=== PATIENT | female | born 1970 | race Caucasian/White ===

== ENCOUNTER 2017-06-22 12:47 | Inpatient (IN) | payer BC, OTHER ==
[~2017-06-22] VITALS: Ht 175.3 cm; Wt 60.3 kg
[2017-06-22] MEDS ORDERED: MAGNESIUM HYDROXIDE 30 ML LIQUID UDC PO PRN (14:00)
[2017-06-22] MEDS ORDERED: DICYCLOMINE HCL 20 MG TABLET PO PRN (14:00)
[2017-06-22] MEDS ORDERED: LOPERAMIDE HCL 2 MG CAPSULE PO PRN ×2 (14:00)
[2017-06-22] MEDS ORDERED: LORAZEPAM 2 MG/1 ML VIAL IM PRN (14:00)
[2017-06-22] MEDS ORDERED: ACETAMINOPHEN 325 MG TABLET PO PRN (14:00)
[2017-06-22] MEDS ORDERED: MIRALAX 17 GM POWD.PACK PO PRN (14:00)
[2017-06-22] MEDS ORDERED: THIAMINE HCL 200 MG/2 ML VIAL IM ONE (14:00)
[2017-06-22] MEDS ORDERED: ONDANSETRON 4 MG/2 ML VIAL IM PRN (14:00)
[2017-06-22] MEDS ORDERED: LORAZEPAM 1 MG TABLET PO PRN ×2 (14:00)
[2017-06-22] MEDS ORDERED: MAG HYDROX/AL HYDROX/SIMETH 30 ML LIQUID UDC PO PRN (14:00)
[2017-06-22] MEDS ORDERED: ONDANSETRON ODT 4 MG TAB.RAPDIS SL PRN (14:00)
[2017-06-22] MEDS ORDERED: IBUPROFEN 400 MG TABLET PO PRN (14:00)
--- NOTE | 2017-06-22 14:00 | NUR ---
Pre-Admission Pre-admission assessment taken place in the intake department of [facility]. Pt is A&O x4 and ambulatory with a steady gait. She does not appear intoxicated and answers questions appropriately. Her body movement and facial expression are tense. She is observed to be flushed. Vitals: B/P 178/100, HR 99, RR 18, O2 sat 97%, T 98.1, pain 0/10. She reports that she is here to be treated for ETOH use with last drink being this morning. Admission to continue [facility] the [facility].
[2017-06-22 14:30] VITALS: BP 178/100
[2017-06-22 14:33] LABS: *URINE HCG, QUAL NEGATIVE
[2017-06-22 14:45] LABS: *AMPHETAMINE, URINE NEGATIVE (NEGATIVE); *BARBITURATE, URINE NEGATIVE (NEGATIVE); *CANNABINOID, URINE NEGATIVE (NEGATIVE); *COCCAINE, URINE NEGATIVE (NEGATIVE); *OPIATE, URINE NEGATIVE (NEGATIVE); *PHENCYCLIDINE SCREEN,URINE NEGATIVE (NEGATIVE)
[2017-06-22] MEDS ORDERED: VENL75TA4 PO (15:08)
[2017-06-22] MEDS ORDERED: LEVO100T10 PO (15:08)
[2017-06-22] MEDS ORDERED: VALS1TAB2 PO (15:08)
[2017-06-22] MEDS: CLONIDINE HCL 0.1 MG TABLET PO PRN (15:13)
[2017-06-22] MEDS: HCTZ PO SCH (15:13)
[2017-06-22] MEDS: VALSARTAN PO SCH (15:13)
--- NOTE | 2017-06-22 15:15 | NUR ---
PRN Clonidine and one time Valsartan Pt's B/P on admission is 178/[address] Little made aware. Orders received to administer home medication Valsartan and PRN Clonidine.
[2017-06-22] MEDS ORDERED: MULT1TAB73 PO (15:58)
[2017-06-22] MEDS ORDERED: CHOL200010 PO (15:58)
[2017-06-22] MEDS ORDERED: CHOL200078 PO (15:58)
[2017-06-22] MEDS ORDERED: [UNRECOGNIZED DRUG - OTHER] PO (15:58)
[2017-06-22] MEDS ORDERED: THYROMIN PO (15:58)
[2017-06-22] MEDS ORDERED: CYAN10009 PO (15:58)
[2017-06-22] MEDS ORDERED: [UNRECOGNIZED DRUG - OTHER] PO (15:58)
[2017-06-22] MEDS ORDERED: CALC-860 PO (15:58)
[2017-06-22] MEDS ORDERED: ESOM20CA PO (15:58)
--- NOTE | 2017-06-22 16:00 | NUR ---
ADMISSION Pt is a 47 yo female who arrived on the [facility] at 1422 on 06/22/17 for medically supervised ETOH detox. Body check performed by BUS ESCORT and skin check performed by nurse. Pt is A&O x4 and ambulatory with a steady gait. She does not appear intoxicated. She has a flat affect and depressed mood. She is odorous and appears tense with facial flushing. The patient states that withdrawal from ETOH typically causes tremors, depression, anxiety, and an overall feeling of discomfort. Pt denies a h/o withdrawal related seizures. History of use: ETOH/Malt beverage [place] 144 oz per day for the past 3 years. Last drank 36 oz on 06/22/17 at 0600. She began drinking alcohol 4 years ago. Pt denies using any other substances. She smokes 20 cigarettes per day. She states that she is seeking treatment today because "Its time to change". Her internal motivation for treatment is her family. This is her first time in any detox or treatment. She explains that the way she handles stress is by drinking. She has suffered the of one child and has three living children. She lives at home with her and children. Vitals: B/P 178/100, HR 99, RR 18, O2 sat 97%, T 98.1, pain 0/10. She is 5'9" and weighs 133lb. Heart rhythm is regular. Respirations are even and unlabored. Mild wheezing heard throughout all lung logan. Pt denies SOB. Bowel sounds present in all quadrants. Skin is warm and intact. Pt had a gastric bypass in 2007 and states I have a picky pallet. Last BM was this morning. She currently has her menstrual period and reports that it is irregular. Her medical history includes HTN, Hashimotos disease, h/o cervical cancer, gastric bypass, anxiety, and depression. Her primary care physician is Dr. Karen Sigala in [facility]. Educated patient about the plan of care, medications, and use of the call light. Encouraged patient be open and honest and verbalized support in her recovery. Addendum: 06/22/17 at 1912 by ALLYSON HANSEN RN Pt reports occasionally having "a couple days of sobriety" with the last time being two weeks ago.
[2017-06-22] MEDS: THIAMINE HCL 100 MG TABLET PO SCH (16:19)
[2017-06-22] MEDS: LORAZEPAM 1 MG TABLET PO SCH ×2 (16:19→20:20)
[2017-06-22 16:30] VITALS: BP 158/79
--- NOTE | 2017-06-22 16:30 | NUR ---
PRN Clonidine and one time Valsartan reassessment PRN Clonidine and Valsartan effective at reducing pt's B/P to 158/79. She is lying in bed resting.
[2017-06-22 17:31] LABS: BASOPHILS # (AUTO) 0.1 K/uL (0.0-8.0); BASOPHILS % (AUTO) 0.9 % (0.0-2.0); EOSINOPHILS % (AUTO) 0.3 % (0.0-7.0); HEMATOCRIT 42.5 % (36.7-47.1); HEMOGLOBIN 14.5 g/dL (12.5-16.3); LYMPHOCYTES # (AUTO) 1.8 K/uL (20.0-40.0); LYMPHOCYTES % (AUTO) 22.1 % (20.5-51.5); MEAN CORPUSCULAR HEMOGLOBIN 34.3 uug (23.8-33.4); MEAN CORPUSCULAR HGB CONC 34 g/dL (32.5-36.3); MEAN CORPUSCULAR VOLUME 100.2 fL (73.0-96.2); MONOCYTES # (AUTO) 0.6 K/uL (2.0-10.0); MONOCYTES % (AUTO) 7.4 % (0.0-11.0); NEUTROPHILS # (AUTO) 5.8 K/uL (1.8-8.9); NEUTROPHILS % (AUTO) 69.3 % (38.5-71.5); PLATELET COUNT (AUTO) 282 K/uL (152-348); RED BLOOD CELL COUNT(AUTO) 4.24 MIL/uL (4.06-5.63); WHITE BLOOD COUNT (AUTO) 8.3 K/uL (3.6-10.2)
[2017-06-22 17:34] LABS: ETHANOL 70 MG/DL (0-0)
[2017-06-22 17:43] LABS: ALANINE AMINOTRANSFERASE 35 U/L (16-63); ALKALINE PHOSPHATASE 125 U/L (50-136); AMYLASE 69 U/L (25-115); ASPARTATE AMINOTRANSFERASE 52 U/L (15-37); BILIRUBIN,TOTAL 0.4 mg/dL (0.2-1.0); CARBON DIOXIDE 27 mmol/L (21-32); CHLORIDE 97 mmol/L (98-107); CREATININE 0.6 mg/dL (0.6-1.3); GLUCOSE 87 mg/dL (74-106); MAGNESIUM 1.8 mg/dL (1.8-2.4); POTASSIUM 3.6 mmol/L (3.5-5.1); TOTAL PROTEIN, SERUM 7.1 g/dL (6.4-8.2); UREA NITROGEN, BLOOD 7 mg/dL (7-18)
[2017-06-22 17:53] LABS: THYROID STIMULATING HORMONE 1.635 mIU/mL (0.358-3.740)
--- NOTE | 2017-06-22 19:10 | NUR ---
END OF SHIFT Report provided to table games shift manager nurse. Pt is lying in bed resting. She is a 47 yo female admitted to [facility] today for ETOH dependence. Modified Ativan taper started today. She had elevated B/P. PRN Clonidine and home Valsartan administered and effective. Pt did not sleep well last night prior to coming to [facility]. She is currently lying in bed resting. Last CIWA was 9 and she drank 605mL. Safety measures in place. Bed is down with call light in reach.
--- NOTE | 2017-06-22 19:30 | NUR ---
START OF SHIFT Pt is a 47 y/o female admitted on today for ETOH withdrawal. Pt started a 5 day Ativan taper today, tolerating well. Last CIWA 9 and PRN Clonidine administered. Upon assessment pt presents with anxiety, agitation, irritability, restlessness, flat and depressed affect, fatigue, lethargy, flushed skin, tremors, intermittent sweats, slumped posture, increased BP and HR, dysphoria and anhedonia. Medications due. Safety measures in place. Call light within reach. Will continue to monitor.
[2017-06-22 20:00] VITALS: BP 209/99
--- NOTE | 2017-06-22 20:20 | NUR ---
MD NOTIFICATION BP 209/99, HR 100. Pt has asymptomatic elevated BP. MD notified. Orders to give Amlodipine and Labetalol x 1. Safety measures in place. Call light within reach. Will continue to monitor.
[2017-06-22] MEDS ORDERED: LABETALOL HCL 100 MG TABLET PO ONE (20:30)
[2017-06-22] MEDS ORDERED: AMLODIPINE 10 MG TABLET PO ONE (20:30)
[2017-06-23] VITALS (10 sets, daily range): BP systolic 111–189; BP diastolic 71–106
[2017-06-23] MEDS: CLONIDINE HCL 0.1 MG TABLET PO PRN ×3 (00:43→16:45)
--- NOTE | 2017-06-23 00:45 | NUR ---
PRN CLONIDINE AND BENADRYL ADMINISTRATION BP 143/82 HR 88, orders to give PRN Clonidine. Pt requests sleep aid for insomnia. Safety measures in place. Call light within reach. Will continue to monitor.
[2017-06-23] MEDS: diphenhydrAMINE 50 MG CAPSULE PO PRN ×2 (00:48→21:32)
[2017-06-23] MEDS: hydrALAZINE HCL 50 MG TABLET PO PRN ×3 (03:58→16:45)
--- NOTE | 2017-06-23 04:00 | NUR ---
PRN HYDRALAZINE ADMINISTRATION BP 173/87 HR 87, orders to give Hydralazine. Safety measures in place. Call light within reach. Will continue to monitor.
--- NOTE | 2017-06-23 04:00 | NUR ---
EBENEZER DEFERRED Pt laying in bed with eyes closed, CIWA deferred, to be assessed when pt is awake per orders. Respirations even and unlabored. Safety measures in place. Call light within reach. Will continue to monitor. Addendum: 06/23/17 at 0656 by ELMER BRAUN RN CORRECTION: EBENEZER NOT DEFERRED, WOKE UP SHORTLY AFTER 0400
--- NOTE | 2017-06-23 05:00 | NUR ---
PRN HYDRALAZINE REASSESSMENT BP 162/81 HR 74. Pt is asymptomatic. Safety measures in place. Call light within reach. Will continue to monitor.
--- NOTE | 2017-06-23 06:43 | NUR ---
PRN CLONIDINE ADMINISTRATION BP 172/91, BP 72, orders to give Clonidine. Pt is asymptomatic. Safety measures in place. Call light within reach. Will continue to monitor. Addendum: 06/23/17 at 0659 by ELMER BRAUN RN Reassessment endorsed to day shift nurse.
--- NOTE | 2017-06-23 06:59 | NUR ---
END OF SHIFT Pt is a 47 y/o female admitted on today for ETOH withdrawal. Pt started a 5 day Ativan taper today, tolerating well. Pt presented with anxiety, agitation, irritability, restlessness, flat and depressed affect, fatigue, lethargy, flushed skin, tremors, intermittent sweats, slumped posture, persistent increased BP and HR, dysphoria and anhedonia. Pts BP was 209/99, notified, gave orders for Amlodipine and Labetalol x 1. Scheduled medications and PRN Clonidine x2, Hydralazine and Benadryl administered, effective in S/S of withdrawal as verbalized by pt. Last CIWA 12. Pt slept 9 hours. Intake 2000 ml, void x 3, stool x 0. Safety measures in place. Call light within reach. Pts needs have been met. Endorsed to day shift nurse.
[2017-06-23] MEDS: SYNTHROID 100 MCG PO SCH (07:14)
--- NOTE | 2017-06-23 07:50 | NUR ---
START OF SHIFT: RECEIVED PT A/O X 4 LAYING IN BED. SHE PRESENTS WITH ANXIOUS MOOD AND GUARDED AFFECT. SHE IS TREMULOUS WITH FLUSHED FACE. SHE REPORTS ANXIETY,SWEATS,TREMORS, IRRITABILITY,FATIGUE AND RESTLESSNESS. IT WAS REPORTED FROM HOME ORGANIZER THAT BP WAS ELEVATED AND APRESOLINE AND CLONIDINE GIVEN ORDERED PRN BP NOW 175/98 P 93. ENCOURAGED REST TODAY. ATIVAN TAPER IN PROGRESS TO MANAGE S/S OF W/D. CIWA 13. WILL CONTINUE TO PROVIDE SAFE AND SUPPORTIVE ENVIRONMENT.
[2017-06-23] MEDS: THIAMINE HCL 100 MG TABLET PO SCH (08:25)
[2017-06-23] MEDS: MULTIVITAMINS,THERAPEUTIC TABLET PO SCH (08:25)
[2017-06-23] MEDS: FOLIC ACID 1 MG TABLET PO SCH (08:25)
[2017-06-23] MEDS: LORAZEPAM 1 MG TABLET PO SCH ×3 (08:26→21:32)
[2017-06-23] MEDS: VALSARTAN PO SCH (08:27)
[2017-06-23] MEDS: HCTZ PO SCH (08:27)
[2017-06-23] MEDS ORDERED: THIAMINE HCL 100 MG TABLET PO SCH (09:00)
[2017-06-23] MEDS ORDERED: TUBERCULIN,PURIF.PROT.DERIV. 5 TU/0.1 ML TEST ID ONE (09:00)
[2017-06-23] MEDS: VENLAFAXINE XR 75 MG CAP.SR.24H PO SCH (10:01)
--- NOTE | 2017-06-23 10:08 | NUR ---
PRN HYDRALAZINE 50 MG PO GIVEN ORDERED FOR BP 182/90 P 91 PT STATES SHE IS ASYMPTOMATIC. WILL MONITOR EFFECTIVENESS OF PRN
--- NOTE | 2017-06-23 11:10 | NUR ---
PRN HYDRALAZINE NOT EFFECTIVE. BP 184/105 P 90. NEW ORDERS FOR ANTIHYPERTENSIVES PENDING PER .
--- NOTE | 2017-06-23 12:10 | NUR ---
ONE TIME ORDERS FOR DIOVAN AND NORVASC ADMINISTERED ORDERED FOR ELEVATED BP.PRN ATIVAN 2 MG PO ADMINISTERED FOR CIWA 14. WILL MONITOR EFFECTIVENESS.
[2017-06-23] MEDS ORDERED: AMLODIPINE 5 MG TABLET PO ONE (13:00)
[2017-06-23] MEDS ORDERED: VALSARTAN 160 MG TABLET PO ONE (13:00)
--- NOTE | 2017-06-23 13:05 | NUR ---
BP 151/91 P 103 NORVASC AND DIOVAN EFFECTIVE.
--- NOTE | 2017-06-23 13:09 | NUR ---
PRN ATIVAN EFFECTIVE.CIWA 9.
--- NOTE | 2017-06-23 16:50 | NUR ---
PRN HYDRALAZINE AND PRN CLONIDINE ADMINISTERED FOR BP 174/106 P 106. WILL MONITOR EFFECTIVENESS.
--- NOTE | 2017-06-23 17:50 | NUR ---
PRN HYDRALAZINE AND PRN CLONIDINE EFFECTIVE. BP 111/71 P 110.
--- NOTE | 2017-06-23 19:00 | NUR ---
END OF SHIFT: PT CONTINUES ON ATIVAN TAPER TO MANAGE S/S OF ETOH W/D. PT C/O ANXIETY,SWEATS,TREMORS,CHILLS AND RESTLESSNESS. SHE WAS COMPLIANT WITH REST AND FLUIDS TODAY EXCEPT TO SMOKE DOWNSTAIRS. LAST CIWA 10. PRN ATIVAN GIVEN EARLY IN SHIFT FOR S/S OF W/D. PRN HYDRALAZINE GIVEN X 2 AND PRN CLONIDINE GIVEN X 1 TO MANAGE ELEVATED BP. VS WNL AT THIS TIME. WILL PASS SHIFT REPORT TO ONCOMING NIGHT NURSE.
--- NOTE | 2017-06-23 19:30 | NUR ---
START OF SHIFT Pt is a 47 y/o female admitted on 06/22/17 for ETOH withdrawal. Pt started a 5 day Ativan taper 06/22/17, tolerating well. Last CIWA 10 and PRN Clonidine, Hydralazine x 2, Ativan and one time orders for Norvasc and Diovan administered. Upon assessment pt presents with anxiety, agitation, irritability, difficulty falling and staying asleep, restlessness, flat and depressed affect, fatigue, lethargy, flushed skin, intermittent tremors, intermittent sweats, slumped posture, poor eye contact, increased HR, dysphoria and anhedonia. Medications due. Safety measures in place. Call light within reach. Will continue to monitor.
--- NOTE | 2017-06-23 21:32 | NUR ---
PRN BENADRYL ADMINISTRATION Pt requests sleep aid. Safety measures in place. Call light within reach. Will continue to monitor.
--- NOTE | 2017-06-23 22:32 | NUR ---
PRN BENADRYL REASSESSMENT Pt laying in bed with eyes closed, medication noted effective. Respirations even and unlabored. Safety measures in place. Call light within reach. Will continue to monitor.
[2017-06-24] VITALS (8 sets, daily range): BP systolic 117–185; BP diastolic 81–102
[2017-06-24] MEDS: hydrALAZINE HCL 50 MG TABLET PO PRN (00:08)
--- NOTE | 2017-06-24 00:08 | NUR ---
PRN HYDRALAZINE ADMINISTRATION BP 164/86 and HR 102, orders to give Hydralazine. Pt is asymptomatic. Safety measures in place. Call light within reach. Will continue to monitor.
--- NOTE | 2017-06-24 01:08 | NUR ---
PRN HYDRALAZINE REASSESSMENT BP 117/81 and HR 108, medication effective in lowering BP. Safety measures in place. Call light within reach. Will continue to monitor.
--- NOTE | 2017-06-24 01:20 | NUR ---
PRN ATIVAN 1 MG ADMINISTRATION CIWA 9. Pt presents with anxiety, restlessness, agitation and sweats. Safety measures in place. Call light within reach. Will continue to monitor.
--- NOTE | 2017-06-24 02:20 | NUR ---
PRN ATIVAN REASSESSMENT Pt laying in bed with eyes closed, medication noted effective. Respirations even and unlabored. Safety measures in place. Call light within reach. Will continue to monitor.
[2017-06-24] MEDS: CLONIDINE HCL 0.1 MG TABLET PO PRN ×2 (04:49→18:30)
--- NOTE | 2017-06-24 04:49 | NUR ---
PRN CLONIDINE ADMINISTRATION BP 150/102 and HR 86. Pt is asymptomatic. Safety measures in place. Call light within reach. Will continue to monitor.
--- NOTE | 2017-06-24 05:49 | NUR ---
PRN CLONIDINE REASSESSMENT BP 129/93 and HR 86. Safety measures in place. Call light within reach. Will continue to monitor.
[2017-06-24 06:06] LABS: HEPATITIS B SURFACE AG Negative (Negative)
[2017-06-24] MEDS: SYNTHROID 100 MCG PO SCH (07:00)
--- NOTE | 2017-06-24 07:11 | NUR ---
END OF SHIFT Pt is a 47 y/o female admitted on 06/22/17 for ETOH withdrawal. Pt started a 5 day Ativan taper 06/22/17, tolerating well. Pt presented with anxiety, agitation, irritability, difficulty falling and staying asleep, restlessness, flat and depressed affect, fatigue, lethargy, flushed skin, intermittent tremors, intermittent sweats, slumped posture, poor eye contact, persistently increased HR and BP, dysphoria and anhedonia. Scheduled medications and PRN Benadryl, Hydralazine, Clonidine and Ativan 1 mg administered, effective in S/S of withdrawal AEB CIWA 12 lowered to CIWA 9 during shift. Pt slept 6 hours. Intake 750 ml, void x 3, stool x 0. Safety measures in place. Call light within reach. Pts needs have been met. Endorsed to day shift nurse.
--- NOTE | 2017-06-24 08:15 | NUR ---
START OF SHIFT: RECEIVED PT A/O X 4 LAYING IN BED. SHE PRESENTS WITH ANXIOUS MOOD AND GUARDED AFFECT. SHE REPORTS ANXIETY,SWEATS,TREMORS, AND RESTLESSNESS. SHE IS DISHEVELED. POOR EYE CONTACT NOTED AND FLUSHED COMPLEXION. TREMORS NOTED. ATIVAN TAPER IN PROGRESS TO MANAGE S/S OF W/D. CIWA 9. ENCOURAGED INCREASED FLUIDS TO ASSIST IN FACILITATING DETOX PROCESS. WILL CONTINUE TO PROVIDE SAFE AND SUPPORTIVE ENVIRONMENT.
[2017-06-24] MEDS: MULTIVITAMINS,THERAPEUTIC TABLET PO SCH (08:20)
[2017-06-24] MEDS: VENLAFAXINE XR 75 MG CAP.SR.24H PO SCH (08:20)
[2017-06-24] MEDS: FOLIC ACID 1 MG TABLET PO SCH (08:20)
[2017-06-24] MEDS: PATIENT MAY USE OWN MED- MD OK PO SCH (08:21)
[2017-06-24] MEDS: THIAMINE HCL 100 MG TABLET PO SCH (08:21)
[2017-06-24] MEDS ORDERED: LORAZEPAM 1 MG TABLET PO SCH ×2 (09:00→21:00)
[2017-06-24] MEDS ORDERED: AMLODIPINE 5 MG TABLET PO SCH ×2 (09:00→17:00)
[2017-06-24] MEDS: LORAZEPAM 1 MG TABLET PO SCH ×2 (12:16→16:39)
--- NOTE | 2017-06-24 18:47 | NUR ---
END OF SHIFT: PT CONTINUES ON ATIVAN TAPER TO MANAGE S/S OF ETOH W/D. PT C/O ANXIETY,TREMORS AND RESTLESSNESS. LAST CIWA 9. PRN CLONIDINE GIVEN X 1 TO MANAGE ELEVATED BP. WILL ENDORSE REASSESSMENT OF BP TO DOLL REPAIRER NURSE. SHE ATTENDED GROUPS. SHE IS COMPLIANT WITH TREATMENT PLAN. WILL PASS SHIFT REPORT TO ONCOMING NIGHT NURSE.
--- NOTE | 2017-06-24 19:00 | NUR ---
Start of Shift Patient Received. Patient is noted in her room sleeping but easily aroused to verbal stimuli. Breathing even and non labored. Room is noted to be unkempt with snacks and trash noted on bedside table. Per endorsement, she continues on a modified Ativan taper. Patient received PRN Clonidine for elevated blood pressure with endorsement. All needs attended to promptly. Will continue plan of care as ordered. Addendum: 06/24/17 at 1950 by MIA ART LVN Last noted CIWA 9.
[2017-06-24] MEDS: diphenhydrAMINE 50 MG CAPSULE PO PRN (20:23)
--- NOTE | 2017-06-24 20:31 | NUR ---
PRN Medication Reassessment/Administration Patient was given PRN Clonidine for elevated blood pressure with medication noted to be effective. Blood pressure noted to be 146/86 and heart rate of 101. Patient verbalized "I've been smoking a lot so that is probably making it go up." patient is noted verbalizing inability of falling asleep. PRN Benadryl administered. Will continue to monitor.
--- NOTE | 2017-06-24 21:30 | NUR ---
PRN Medication Reassessment patient is noted in bed sleeping. Breathing even and non labored. No signs of restlessness or discomfort noted. PRN Benadryl noted to be effective. Will continue to monitor.
[2017-06-25 00:03] VITALS: BP 130/81
[2017-06-25 04:20] VITALS: BP 128/83
[2017-06-25] MEDS: SYNTHROID 100 MCG PO SCH (06:39)
--- NOTE | 2017-06-25 07:05 | NUR ---
End of Shift Patient is in bed sleeping. Breathing even and non labored. Patient continues on a modified Ativan taper. PRN Benadryl administered for inability of falling asleep with medication noted to be effective. Patient noted to sleep a total of 7 hours. Last noted CIWA 12. All needs attended to promptly. Will endorse to continue plan of care as ordered.
--- NOTE | 2017-06-25 07:18 | NUR ---
BEGINNING OF SHIFT Patient endorsement report received from weight shifter nurse, all pertinent information discussed. Patient is a 47 year old female with admitting Dx: etoh withdrawal. Patient continues under very close observation, patient is scheduled to begin day 4 of 5 day ativan taper as ordered. Received PRN: Benadryl during weight shifter. slept for 7 hours. Fall and seizure precautions observed at all times. Patient received in bed with eyes closed, respirations are even and unlabored. will educated regarding plan of care for the day, and medication regimen. fall and seizure precautions observed and in place. will continue to monitor closely. safety measures in place.
[2017-06-25 08:11] VITALS: BP 136/96
[2017-06-25] MEDS: AMLODIPINE 10 MG TABLET PO SCH (08:13)
[2017-06-25] MEDS: VENLAFAXINE XR 75 MG CAP.SR.24H PO SCH (08:13)
[2017-06-25] MEDS: PATIENT MAY USE OWN MED- MD OK PO SCH (08:13)
[2017-06-25] MEDS: LORAZEPAM 1 MG TABLET PO SCH ×2 (08:14→14:33)
[2017-06-25] MEDS: MULTIVITAMINS,THERAPEUTIC TABLET PO SCH (08:14)
[2017-06-25] MEDS: FOLIC ACID 1 MG TABLET PO SCH (08:14)
[2017-06-25] MEDS: THIAMINE HCL 100 MG TABLET PO SCH (08:14)
[2017-06-25] MEDS ORDERED: LORAZEPAM 1 MG TABLET PO SCH ×3 (09:00→21:00)
[2017-06-25 13:48] VITALS: BP 150/91
[2017-06-25] MEDS: hydrALAZINE HCL 50 MG TABLET PO PRN (14:33)
--- NOTE | 2017-06-25 14:33 | NUR ---
PRN HYDRALAZINE Patient with bp: 150/91 hr: 99 administered hydralazine as ordered, will monitor closely.
--- NOTE | 2017-06-25 15:33 | NUR ---
HYDRALAZINE REASSESSMENT medication effective, bp: 147/86 hr: 98, will continue to monitor.
[2017-06-25 17:34] VITALS: BP 147/86
--- NOTE | 2017-06-25 18:55 | NUR ---
END OF SHIFT Patient alert and oriented x4, monitored closely during shift. Patient has a worried, and anxious facial expression. Patient at times with increase anxiety, provided with calming reassurance as needed along with non pharmacological interventions. During shift patient presented with: tremors, sweats, anxiety and agitation. initial ciwa score of: 8, last ciwa score of: 7. detox medication effective at reducing s/sx of withdrawal. Patient was administered no PRN medications during shift. Patient was encouraged adequate PO fluid intake as tolerated. Patient encouraged to participate in therapy sessions, patient denies any SI/HI, noted participating. Patient was encouraged to verbalize feelings, encouraged to develop coping skills and utilization of non pharmacological interventions. Patients safety measures are in place. call light kept with in reach, will continue to monitor. Endorsed to table games shift manager nurse, all pertinent information discussed.
--- NOTE | 2017-06-25 19:05 | NUR ---
Start of Shift Patient Received. Patient is in bed sleeping but easily aroused to verbal stimuli. Breathing even and non labored. Per endorsement, patient continues on a modified Ativan taper. Patient received PRN Hydralazine for elevated blood pressure with medication noted to be effective. Last noted CIWA 7. All needs attended to promptly. Will continue plan of care as ordered.
[2017-06-25 20:52] VITALS: BP 133/91
[2017-06-25] MEDS: diphenhydrAMINE 50 MG CAPSULE PO PRN (21:05)
--- NOTE | 2017-06-25 21:05 | NUR ---
PRN Medication Administration Patient is noted verbalizing inability of falling asleep. PRN Benadryl administered with routine medications. All needs attended to promptly. Will continue to monitor.
--- NOTE | 2017-06-25 22:02 | NUR ---
PRN Medication Reassessment Patient is noted in bed sleeping. Breathing even and non labored. No signs of restlessness or discomfort noted. PRN Benadryl noted to be effective. Will continue to monitor.
[2017-06-26] VITALS (8 sets, daily range): BP systolic 118–164; BP diastolic 73–89
[2017-06-26] MEDS: SYNTHROID 100 MCG PO SCH (06:28)
--- NOTE | 2017-06-26 07:14 | NUR ---
End of Shift Patient is noted in bed sleeping. Breathing even and no labored. Patient continues on a modified Ativan taper. PRN Benadryl administered for inability of falling asleep with medication noted to be effective. Last noted CIWA 10. Patient noted to sleep a total of 5 hours. All needs attended to promptly. Will endorse to continue plan of care as ordered.
--- NOTE | 2017-06-26 07:43 | NUR ---
BEGINNING OF SHIFT Patient endorsement report received from night assistant nurse, all pertinent information discussed. Patient is a 47 year old female with admitting Dx: etoh withdrawal. Patient continues under very close observation, patient is scheduled to begin day 5 of 5 day ativan taper as ordered. Received PRN: Benadryl during night assistant. slept for 5 hours. Fall and seizure precautions observed at all times. Patient received in bed with eyes closed, respirations are even and unlabored. will educated regarding plan of care for the day, and medication regimen. fall and seizure precautions observed and in place. will continue to monitor closely. safety measures in place.
[2017-06-26] MEDS: VENLAFAXINE XR 75 MG CAP.SR.24H PO SCH (08:40)
[2017-06-26] MEDS: PATIENT MAY USE OWN MED- MD OK PO SCH (08:40)
[2017-06-26] MEDS: FOLIC ACID 1 MG TABLET PO SCH (08:40)
[2017-06-26] MEDS: THIAMINE HCL 100 MG TABLET PO SCH (08:40)
[2017-06-26] MEDS: AMLODIPINE 10 MG TABLET PO SCH (08:40)
[2017-06-26] MEDS: MULTIVITAMINS,THERAPEUTIC TABLET PO SCH (08:40)
[2017-06-26] MEDS: LORAZEPAM 1 MG TABLET PO SCH ×2 (08:40→20:26)
[2017-06-26] MEDS ORDERED: AMLO10TA2 PO (17:21)
[2017-06-26] MEDS ORDERED: DIPH50CA37 PO (17:21)
[2017-06-26] MEDS ORDERED: MULT1TAB73 PO (17:21)
[2017-06-26] MEDS ORDERED: LEVO100T10 PO (17:21)
[2017-06-26] MEDS ORDERED: CLON0.1T14 PO (17:21)
--- NOTE | 2017-06-26 19:04 | NUR ---
END OF SHIFT Patient alert and oriented x4, monitored closely during shift. Patient has a worried, and anxious facial expression. Patient at times with increase anxiety, provided with calming reassurance as needed along with non pharmacological interventions. Patients blood pressure WNL during shift. During shift patient presented with: tremors, anxiety, and agitation. Initial ciwa score f: 9, last ciwa score of: 9. detox medication effective at reducing s/sx of withdrawal. Patient was administered no PRN medications during shift. Patient was encouraged adequate PO fluid intake as tolerated. Patient encouraged to participate in therapy sessions, patient denies any SI/HI, noted participating. Patient was encouraged to verbalize feelings, encouraged to develop coping skills and utilization of non pharmacological interventions. Patients safety measures are in place. call light kept with in reach, will continue to monitor. Endorsed to shiftman nurse, all pertinent information discussed.
--- NOTE | 2017-06-26 19:05 | NUR ---
Start of Shift Patient Received. Patient is noted activities room participating in a group meeting. Per endorsement, patient continues on a modified Ativan taper. She was seen by MD with new order for PRN Baclofen. Patient has been compliant with medications and tolerating well. No PRN medications administered. Last noted CIWA 7. All needs attended to promptly. Will continue plan of care as ordered.
[2017-06-26] MEDS: hydrALAZINE HCL 50 MG TABLET PO PRN (22:06)
[2017-06-26] MEDS: diphenhydrAMINE 50 MG CAPSULE PO PRN (22:06)
--- NOTE | 2017-06-26 22:21 | NUR ---
PRN Medication Administration patient is noted with blood pressure of 164/87 and pulse of 84. she is also verbalizing inability of falling asleep. PRN Hydralazine and Benadryl administered. Will continue to monitor.
--- NOTE | 2017-06-26 23:19 | NUR ---
PRN Medication Reassessment patient is noted in bed sleeping but easily aroused to verbal stimuli. Breathing even and non labored. Blood pressure noted to be 118/73 and pulse 84. PRN Clonidine noted to be effective. Patient able to verbalize "I'm going to go back to sleep now." PRN Benadryl noted to be effective. Will continue to monitor.
[2017-06-27 00:05] VITALS: BP 145/76
[2017-06-27] MEDS: BACLOFEN 20 MG TABLET PO PRN ×2 (00:09→21:42)
[2017-06-27] MEDS: CLONIDINE HCL 0.1 MG TABLET PO PRN ×2 (00:09→20:26)
--- NOTE | 2017-06-27 00:13 | NUR ---
PRN Medication Administration Patient is noted awake and verbalizing increase muscle spasms. She verbalizes "I was sleeping but my legs keep cramping and waking me up. Im going to go outside for cigarette then come back upstairs to try and sleep again." Patient returned upstairs to unit and blood pressure noted as 145/76 and pulse of 92. PRN Clonidine and Baclofen administered. Will continue to monitor.
--- NOTE | 2017-06-27 01:15 | NUR ---
PRN Medication Reassessment Patient is noted in bed sleeping but easily aroused to verbal stimuli. Blood pressure noted to be 101/59 and pulse of 86. Patient is able to quickly go back to sleep with no verbalization of pain or discomfort. No facial grimacing noted. PRN Clonidine and Baclofen noted to be effective. Will continue to monitor.
[2017-06-27 04:23] VITALS: BP 127/75
[2017-06-27] MEDS: SYNTHROID 100 MCG PO SCH (06:41)
--- NOTE | 2017-06-27 07:16 | NUR ---
End of Shift Patient is noted in bed sleeping but easily aroused to verbal stimuli. Breathing even and non labored. Patient continues on a modified Ativan taper. Patient received PRN Benadryl, Hydralazine, Clonidine, and Baclofen with all medications noted to be effective. Last noted CIWA 5. Patient is noted to sleep a total of 6 hours. All needs attended to promptly. Will endorse to continue plan of care as ordered.
--- NOTE | 2017-06-27 07:21 | NUR ---
BEGINNING OF SHIFT Patient endorsement report received from slot shift supervisor nurse, all pertinent information discussed. Patient is a 47 year old female with admitting Dx: etoh withdrawal. Patient continues under very close observation, patient with ongoing Ativan taper as ordered. Received PRN: Benadryl, hydralazine, clonidine and baclofen, during slot shift supervisor slept for 6 hours. Fall and seizure precautions observed at all times. Patient received in bed with eyes closed, respirations are even and unlabored. will educated regarding plan of care for the day, and medication regimen. fall and seizure precautions observed and in place. will continue to monitor closely. safety measures in place.
[2017-06-27 08:25] VITALS: BP 137/80
[2017-06-27] MEDS: MULTIVITAMINS,THERAPEUTIC TABLET PO SCH (08:31)
[2017-06-27] MEDS: VENLAFAXINE XR 75 MG CAP.SR.24H PO SCH (08:31)
[2017-06-27] MEDS: FOLIC ACID 1 MG TABLET PO SCH (08:31)
[2017-06-27] MEDS: PATIENT MAY USE OWN MED- MD OK PO SCH (08:31)
[2017-06-27] MEDS: THIAMINE HCL 100 MG TABLET PO SCH (08:31)
[2017-06-27] MEDS: AMLODIPINE 10 MG TABLET PO SCH (08:31)
[2017-06-27] MEDS ORDERED: LORAZEPAM 1 MG TABLET PO SCH (09:00)
[2017-06-27 12:58] VITALS: BP 140/79
[2017-06-27 17:17] VITALS: BP 148/87
--- NOTE | 2017-06-27 19:02 | NUR ---
END OF SHIFT Patient alert and oriented x4, monitored closely during shift. Patient has a worried, and anxious facial expression. Patient at times with increase anxiety, provided with calming reassurance as needed along with non pharmacological interventions, with help. Patients blood pressure WNL during shift. patient is scheduled to be discharged tomorrow morning, noted self motivated towards sobriety and discharge. During shift patient presented with: tremors, anxiety, and agitation. Initial ciwa score f: 5, last ciwa score of: 5. detox medication effective at reducing s/sx of withdrawal. Patient received last dose of Ativan this morning, well tolerated, no ASE noted. Patient was administered no PRN medications during shift. Patient was encouraged adequate PO fluid intake as tolerated. Patient encouraged to participate in therapy sessions, patient denies any SI/HI, noted participating. Patient was encouraged to verbalize feelings, encouraged to develop coping skills and utilization of non pharmacological interventions. Patients safety measures are in place. call light kept with in reach, will continue to monitor. Endorsed to coffee shop attendant nurse, all pertinent information discussed.
--- NOTE | 2017-06-27 19:30 | NUR ---
START OF SHIFT Patient is a 47-year-old female admitted on 06/22/17 for ETOH withdrawal. Patient has completed a 5-day Ativan taper, tolerated well, scheduled for discharge tomorrow. Patients last CIWA was 5 per day shift nurse. Patient received no PRN medications during the day, per day shift. Upon assessment, patient is alert and oriented x4. Pt appears disheveled and her room is odorous. Patient reports anxiety and difficulty sleeping at night, and states, I get leg twitches at night, they wake me up. Patient is on fall and seizure precautions with no history of seizures. Safety measures in place, side rails up x2, bed locked in low position, call light within reach. Will continue to monitor.
[2017-06-27 20:00] VITALS: BP 145/84
--- NOTE | 2017-06-27 20:26 | NUR ---
PRN CLONIDINE Patient's BP was 145/84, HR 87. PRN Clonidine given PO for elevated BP. Safety measures in place, call light within reach. Will monitor for effectiveness.
--- NOTE | 2017-06-27 21:26 | NUR ---
PRN CLONIDINE REASSESSMENT BP was re-checked, 128/80 with HR 78. PRN Clonidine effective. Safety measures in place, call light within reach. Will continue to monitor.
[2017-06-27] MEDS: diphenhydrAMINE 50 MG CAPSULE PO PRN (21:42)
--- NOTE | 2017-06-27 21:42 | NUR ---
PRN BACLOFEN AND BENADRYL Patient reports difficulty sleeping and leg spasms/twitches during the night. PRN Benadryl given PO and PRN Baclofen given PO. Safety measures in place, side rails up x2, bed locked in low position, call light within reach. Will monitor for effectiveness.
--- NOTE | 2017-06-27 22:42 | NUR ---
PRN BENADRYL & BACLOFEN REASSESSMENT Patient is resting in bed with eyes closed, respirations even and unlabored. PRN Benadryl effective, unable to assess for effectiveness of PRN Baclofen at this time. Safety measures in place, call light within reach. Will continue to monitor.
[2017-06-28] VITALS: BP 132/81
[2017-06-28 04:00] VITALS: BP 158/92
[2017-06-28] MEDS: hydrALAZINE HCL 50 MG TABLET PO PRN (04:30)
--- NOTE | 2017-06-28 04:30 | NUR ---
PRN HYDRALAZINE Patient woke up at 0400 stating that she had sweat through her pajamas and had to change just a moment ago. Patient is noticeably diaphoretic and flushed, verbalizing anxiety. Blood pressure is 158/92, HR 91. Respirations are even and unlabored, 18/min. PRN Hydralazine given PO for elevated BP. Safety measures in place, call light within reach. Will monitor for effectiveness.
--- NOTE | 2017-06-28 05:30 | NUR ---
PRN HYDRALAZINE REASSESSMENT Patient has BP of 136/82, HR 85. PRN Hydralazine effective. Safety measures in place, call light within reach. Will continue to monitor.
[2017-06-28] MEDS: SYNTHROID 100 MCG PO SCH (06:48)
--- NOTE | 2017-06-28 07:00 | NUR ---
END OF SHIFT Patient is a 47-year-old female admitted on 06/22/17 for ETOH withdrawal. Patient has completed a 5-day Ativan taper, tolerated well, scheduled for discharge today. Patients last CIWA was 9 due to sweats and anxiety. Patient received the following PRNs: Baclofen, Benadryl, Clonidine, Hydralazine. All PRNs were effective. Patient slept for 8 hours, total intake of 700mL, void x3, stool x0. Patient is on fall and seizure precautions with no history of seizures. Safety measures in place, side rails up x2, bed locked in low position, call light within reach. Will endorse to day shift.
--- NOTE | 2017-06-28 07:20 | NUR ---
start of shift note: received pt from night custodian nurse, pt is awake and verbalized she is ready to discharge today. last documented ciwa 9. will monitor blood pressure and assist pt in discharging. will continue to monitor pt for any changes.
[2017-06-28] MEDS: FOLIC ACID 1 MG TABLET PO SCH (08:25)
[2017-06-28] MEDS: AMLODIPINE 10 MG TABLET PO SCH (08:25)
[2017-06-28] MEDS: VENLAFAXINE XR 75 MG CAP.SR.24H PO SCH (08:25)
[2017-06-28] MEDS: PATIENT MAY USE OWN MED- MD OK PO SCH (08:25)
[2017-06-28] MEDS: THIAMINE HCL 100 MG TABLET PO SCH (08:25)
[2017-06-28] MEDS: MULTIVITAMINS,THERAPEUTIC TABLET PO SCH (08:25)
[2017-06-28 09:25] VITALS: BP 131/80
--- NOTE | 2017-06-28 09:30 | NUR ---
discharge note: pt left the unit in stable condition,no s/s of acute withdrawal symptoms. pt teaching administered and pt verbalized understanding. pt left with all belongings and was transferred to treatment via private transportation
== END 2017-06-28 09:30 | disposition other institution (70) | DRG 895 ==
LOC: SRC 13:36 → EDSEX 13:36
PROVIDERS: ADMIT Internal Medicine; ATTEND Internal Medicine
PROC: HZ2ZZZZ Detoxification Services for Substance Abuse Treatment (ICD-10-PCS; principal; 2017-06-22)
PROC: HZ41ZZZ Group Counseling for Substance Abuse Treatment, Behavioral (ICD-10-PCS; 2017-06-24)
PROC: HZ31ZZZ Individual Counseling for Substance Abuse Treatment, Behavioral (ICD-10-PCS; 2017-06-25)
DX: F10.232 Alcohol dependence with withdrawal with perceptual disturbance (principal); F33.2 Major depressive disorder, recurrent severe without psychotic features; K70.10 Alcoholic hepatitis without ascites; E87.8 Other disorders of electrolyte and fluid balance, not elsewhere classified; E87.1 Hypo-osmolality and hyponatremia; Y90.3 Blood alcohol level of 60-79 mg/100 ml; Z98.84 Bariatric surgery status; Z88.0 Allergy status to penicillin; E03.9 Hypothyroidism, unspecified; F17.210 Nicotine dependence, cigarettes, uncomplicated; E86.1 Hypovolemia; I10 Essential (primary) hypertension; Z81.1 Family history of alcohol abuse and dependence; E66.9 Obesity, unspecified
CPT/HCPCS: 36415; 70030-TC; 80307; 83735; 84443; 84703; 85025; 86580; 86592; 86705; 86803; 87340; 87806; G0480; Q0163